=== PATIENT | female | born 2005 | race Hispanic/Latino ===

== ENCOUNTER 2023-06-23 17:10 | Emergency (ER) | payer BC, SELFPAY ==
--- NOTE | 2023-06-23 17:21 | ED.ABDPAIN ---
HPI - Abdominal Pain General Chief Complaint: Abdominal Pain Stated Complaint: stomach pain Source: patient and RN notes reviewed History of Present Illness HPI narrative: 17-year-old female presents to urgent care With visitor at side. Patient states she has been having intermittent abdominal pain for last 10 days. Patient states this pain changes locations and all around her abdomen. Patient states currently the pain is epigastric in location. patient reports being constipated June 06 through the . Patient states she began taking [id number] MiraLax. Patient states June 13 was the day she began having abdominal pains. Pt states she will have hard little balls of stool with some diarrhea around it. Reports nausea intermittently. Denies any vomiting, fevers, chills, chest pain, or SOB. Pt was given Bentyl by another MD has she has had minimal relief. Related Data Home Medications Medication Instructions Recorded Confirmed dicyclomine 10 mg capsule 10 mg PO DIRECTED 06/23/23 06/23/23 Allergies Allergy/AdvReac Type Severity Reaction Status Date / Time No Known Allergies Allergy Verified 06/23/23 17:39 Review of Systems Review of Systems: Pertinent positives and pertinent negatives per HPI. PMFSH Comments At the time of my signature, I reviewed and agree with the nursing past medical, surgical, social, and family history. There is no relevant family history pertinent to the patient complaint. Exam Narrative: GENERAL: This is a well-nourished, well-developed patient, in no apparent distress. HEAD: normocephalic, atraumatic. EYES: Sclera clear/white. Vision is grossly intact. EARS: External ears normal, auditory canals clear and without drainage. Hearing grossly intact. NOSE: External nose normal with no obvious nasal discharge, nares without redness, no rhinorrhea. THROAT: Mucous membranes moist, posterior pharynx clear. NECK: Neck supple, non-tender without lymphadenopathy, masses or thyromegaly. CARDIOVASCULAR: Regular rate and rhythm without murmurs, gallops, or rubs. RESPIRATORY: Clear to auscultation. Breath sounds equal bilaterally. No wheezes, rales, or rhonchi. GASTROINTESTINAL: Abdomen soft, non-tender, nondistended. Bowel sounds are active. No hepato-splenomegaly, or palpable masses. No guarding. SKIN: warm, intact with no suspicious lesions or rash, good texture and turgor. NEURO: awake, alert, and oriented to person, place and time. There were no obvious focal neurologic abnormalities. EXTREMITIES: No clubbing, cyanosis, or edema. No joint tenderness, effusion, or edema noted. BACK: Nontender without deformity or crepitus. No flank tenderness. Course Course Level of Care: Express Care Visit Vital Signs Vital signs: Vital Signs Temperature 98.7 F 06/23/23 17:27 Pulse Rate 90 06/23/23 17:27 Respiratory Rate 16 06/23/23 17:27 Blood Pressure 128/86 06/23/23 17:27 Pulse Oximetry 99 06/23/23 17:27 Oxygen Delivery Room Air 06/23/23 17:27 Temperature 98.7 F 06/23/23 17:27 Pulse Rate 90 06/23/23 17:27 Respiratory Rate 16 06/23/23 17:27 Blood Pressure 128/86 06/23/23 17:27 Pulse Oximetry 99 06/23/23 17:27 Oxygen Delivery Room Air 06/23/23 17:27 reviewed MDM - Abdominal Pain MDM Narrative Medical decision making narrative: Drink the magnesium citrate as directed. Go to the emergency department with any new or worsening symptoms. Less likely obstruction due to intermittent symptoms, pt's current pain is epigastric in location, pain radiates all over abdomen, symptoms have been going on for 10 days, pt not febrile or in any acute distress. Differential Diagnosis Differential diagnosis: Likely constipation, gastroenteritis and small bowel obstruction Lab Data Attestation: I reviewed the patient's lab results. Labs: UCG Bedside Result Negative Reference Range
[2023-06-23 17:27] VITALS: BP 128/86; PULSE 90; RESP 16; TEMP 37.1; O2SAT 99
== END 2023-06-23 18:15 | disposition home or self-care (01) ==
PROVIDERS: Emergency Provider Nurse Practitioner Family
DX: K59.00 Constipation, unspecified (principal)
CPT/HCPCS: 81003; 81025; 99203; G0463